=== PATIENT | female | born 1980 | race Two or more races ===

== ENCOUNTER 2024-01-03 00:30 | Inpatient (IN) | payer MEDICAID, OTHER ==
[~2024-01-03] VITALS: Ht 160 cm; Wt 90.2 kg
[2024-01-03 01:50] VITALS: PULSE 97; RESP 16; O2SAT 96
[2024-01-03 03:10] LABS: Basophils # (auto) 0.1 10 ^3/uL (0-0.2); Basophils % (auto) 0.8 % (0.0-2.0); Eosinophils # (auto) 0.2 10 ^3/uL (0-0.8); Eosinophils % (auto) 2.8 % (0.0-7.0); Hematocrit 30.2 % (36.0-46.0); Lymphocytes % (auto) 30.8 % (10.0-50.0); Mean Corpuscular Hemoglobin 26.1 pg (28.0-32.0); Monocytes # (auto) 0.3 10 ^3/uL (0-1.3); Monocytes % (auto) 4.3 % (0.0-12.0); Neutrophils # (auto) 3.9 10 ^3/uL (1.6-8.6); Neutrophils % (auto) 61.3 % (37.0-80.0); Nucleated Red Blood Cells % 0.5 %; Platelet Count (auto) 291 10^3/uL (140-450); Red Blood Cells 3.83 10^6/uL (4.0-5.20); Red Cell Distribution Width 16.4 % (11.8-14.3); White Blood Cell 6.4 10^3/uL (4.4-10.8)
[2024-01-03 03:19] LABS: Chloride 102 mmol/L (98-107); Sodium 133 mmol/L (136-145)
[2024-01-03 03:28] LABS: Alkaline Phosphatase 128 U/L (46-116); Anion Gap 14 (5-15); BUN/Creatinine Ratio 10.4 (10.0-20.0); Calcium 8.9 mg/dL (8.7-10.4); Carbon Dioxide 17 mmol/L (20-30)
[2024-01-03 03:29] LABS: Albumin 3.5 g/dL (3.2-4.8)
[2024-01-03 03:30] LABS: Alanine Aminotransferase 21 U/L (7-40); Aspartate Aminotransferase 44 U/L (13-40); Blood Urea Nitrogen 7 mg/dL (9-23); Potassium 4.5 mmol/L (3.5-5.1)
[2024-01-03 03:31] LABS: Glucose 448 mg/dL (74-106)
[2024-01-03 03:32] LABS: Bilirubin, Total 0.2 mg/dL (0.2-1.0); Total Protein 6.5 g/dL (5.7-8.2)
[2024-01-03] MEDS: SODIUM CHLORIDE 0.9% 1,000 ML IV ONE (03:54)
[2024-01-03] MEDS ORDERED: HYDROcodone-ACET 5/325MG TAB PO PRN (04:00)
[2024-01-03] MEDS ORDERED: DEXTROSE (50%) 50ML SYRG IV PRN (04:00)
[2024-01-03] MEDS ORDERED: NITROGLYCERIN 0.4 MG SL TAB SL PRN (04:00)
[2024-01-03] MEDS ORDERED: DOCUSATE SOD 100 MG CAP PO PRN (04:00)
[2024-01-03] MEDS: InsuLIN REG 1unit/0.01ml Soln (100units/ml) SC SCH (04:00)
[2024-01-03] MEDS: InsuLIN REG 1unit/0.01ml Soln (100units/ml) IV ONE (04:03)
[2024-01-03] MEDS: ONDANSETRON HCL 4 MG/2 ML VIAL IV ONE (04:03)
[2024-01-03] MEDS: ACCU-CHEK COMFORT CURVE STRIP VI SCH (04:04)
[2024-01-03 04:37] LABS: Eosinophils # (auto) 0.2 10 ^3/uL (0-0.8); Monocytes # (auto) 0.2 10 ^3/uL (0-1.3)
[2024-01-03 04:38] LABS: White Blood Cell 6.9 10^3/uL (4.4-10.8)
[2024-01-03] MEDS: SODIUM CHLORIDE 0.9% 1,000 ML IV SCH (04:39)
[2024-01-03 04:56] LABS: Albumin 3.7 g/dL (3.2-4.8); Alkaline Phosphatase 128 U/L (46-116); Anion Gap 16 (5-15); Aspartate Aminotransferase 47 U/L (13-40); Calcium 8.8 mg/dL (8.7-10.4); Carbon Dioxide 17 mmol/L (20-30); Chloride 102 mmol/L (98-107); Sodium 135 mmol/L (136-145); Total Protein 6.2 g/dL (5.7-8.2)
[2024-01-03 04:59] LABS: BUN/Creatinine Ratio 15.6 (10.0-20.0); Bilirubin, Total < 0.2 mg/dL (0.2-1.0); Blood Urea Nitrogen 10 mg/dL (9-23)
[2024-01-03 05:00] LABS: Potassium 4.2 mmol/L (3.5-5.1)
[2024-01-03 05:02] LABS: Alanine Aminotransferase 22 U/L (7-40); Glucose 401 mg/dL (74-106)
[2024-01-03 05:03] LABS: Hemoglobin 10.8 g/dL (12.2-16.2); Mean Corpuscular Hgb Conc. 32.6 g/dL (32.0-36.0); Mean Corpuscular Volume 79.7 fL (80.0-100.0); Platelet Count (auto) 400 10^3/uL (140-450); Red Blood Cells 4.15 10^6/uL (4.0-5.20); Red Cell Distribution Width 16.5 % (11.8-14.3)
[2024-01-03 05:04] LABS: Neutrophils % (auto) 62.4 % (37.0-80.0)
[2024-01-03 05:05] LABS: Basophils # (auto) 0.1 10 ^3/uL (0-0.2); Basophils % (auto) 0.8 % (0.0-2.0); Eosinophils % (auto) 2.7 % (0.0-7.0); Lymphocytes % (auto) 31.2 % (10.0-50.0); Monocytes % (auto) 2.9 % (0.0-12.0); Nucleated Red Blood Cells % 0.3 %
[2024-01-03] MEDS: LEVOTHYROXINE SODIUM 100 MCG TAB PO SCH (06:05)
[2024-01-03 07:30] VITALS: PULSE 88
[2024-01-03] MEDS: ASPirin 81 mg TAB PO SCH (08:11)
[2024-01-03 08:25] VITALS: BP 138/68; PULSE 85; RESP 18; TEMP 97.9; O2SAT 95
[2024-01-03] MEDS: ACETAMINOPHEN 325 MG TAB PO PRN (12:03)
[2024-01-03 13:00] VITALS: BP 134/74; PULSE 86; RESP 16; TEMP 98; O2SAT 95
[2024-01-03 17:15] VITALS: BP 142/76; PULSE 82; RESP 18; TEMP 98.2; O2SAT 95
[2024-01-03 18:34] LABS: Urine Bacteria None Seen /hpf (None Seen)
[2024-01-03 19:00] LABS: Urine Blood 1+ /uL (Negative); Urine Clarity Clear (Clear); Urine Color Light-Yellow (Yellow); Urine Protein, UAD 3+ (Negative); Urine Specific Gravity 1.029 (1.001-1.035); Urine Urobilinogen Normal (Negative); Urine WBC 5 /hpf (0 - 5); Urine pH 6.5 (5.0-9.0)
[2024-01-03 19:36] LABS: Amphetamine Screen, Urine Neg (NEGATIVE); Barbiturate Scree,Urine Neg (NEGATIVE); Benzodiazephine Screen, Urine Neg (NEGATIVE); Cocaine Screen, Urine Neg (NEGATIVE); Opiate Scree,Urine Neg (NEGATIVE)
[2024-01-03 19:37] LABS: Cannabinoid Screen, Urine Neg (NEGATIVE); Phencyclidine Screen, Urine Neg (NEGATIVE)
[2024-01-03 20:00] VITALS: PULSE 88
[2024-01-03] MEDS: ATORVASTATIN 20 MG TAB PO SCH (21:02)
[2024-01-04 05:00] VITALS: BP 111/65; PULSE 86; RESP 17; TEMP 98.2; O2SAT 94
[2024-01-04 05:37] LABS: Basophils # (auto) 0.1 10 ^3/uL (0-0.2); Eosinophils # (auto) 0.3 10 ^3/uL (0-0.8); Eosinophils % (auto) 4.9 % (0.0-7.0); Hemoglobin 10.7 g/dL (12.2-16.2); Lymphocytes # (auto) 2.4 10 ^3/uL (0.4-5.4); Lymphocytes % (auto) 45.6 % (10.0-50.0); Mean Corpuscular Hemoglobin 26.7 pg (28.0-32.0); Mean Corpuscular Hgb Conc. 33.5 g/dL (32.0-36.0); Mean Corpuscular Volume 79.7 fL (80.0-100.0); Monocytes # (auto) 0.4 10 ^3/uL (0-1.3); Monocytes % (auto) 6.7 % (0.0-12.0); Neutrophils # (auto) 2.2 10 ^3/uL (1.6-8.6); Neutrophils % (auto) 41.8 % (37.0-80.0); Nucleated Red Blood Cells % 0.1 %; Platelet Count (auto) 337 10^3/uL (140-450); Red Blood Cells 4.02 10^6/uL (4.0-5.20); Red Cell Distribution Width 15.8 % (11.8-14.3); White Blood Cell 5.3 10^3/uL (4.4-10.8)
[2024-01-04 05:53] LABS: Alanine Aminotransferase 20 U/L (7-40); Albumin 3.1 g/dL (3.2-4.8); Alkaline Phosphatase 79 U/L (46-116); Anion Gap 9 (5-15); Calcium 8.7 mg/dL (8.7-10.4); Carbon Dioxide 24 mmol/L (20-30); Chloride 104 mmol/L (98-107); Glucose 191 mg/dL (74-106); Potassium 3.5 mmol/L (3.5-5.1); Sodium 137 mmol/L (136-145)
[2024-01-04 05:54] LABS: Bilirubin, Total 0.2 mg/dL (0.2-1.0); Total Protein 5.5 g/dL (5.7-8.2)
[2024-01-04 05:59] LABS: Aspartate Aminotransferase 31 U/L (13-40)
[2024-01-04 06:10] LABS: BUN/Creatinine Ratio 10.9 (10.0-20.0); Blood Urea Nitrogen < 5 mg/dL (9-23)
[2024-01-04 07:30] VITALS: PULSE 92
[2024-01-04 08:43] VITALS: BP 121/78; PULSE 84; RESP 16; TEMP 98; O2SAT 97
[2024-01-04] MEDS: FUROSEMIDE 40 MG/4 ML VIAL IV SCH (12:04)
[2024-01-04 13:38] VITALS: BP 126/77; PULSE 85; RESP 16; TEMP 98.2; O2SAT 95
[2024-01-04] MEDS: MORPHINE SULFATE INJ 2 MG/ml SYRG IV PRN (16:22)
[2024-01-04 20:00] VITALS: PULSE 79; PULSE 91; RESP 18; O2SAT 98
[2024-01-04 21:00] VITALS: BP 121/77; PULSE 79; RESP 18; TEMP 97.8; O2SAT 98
[2024-01-05] VITALS (8 sets, daily range): BP systolic 114–139; BP diastolic 63–93; PULSE 74–95; RESP 16–20; TEMP 97.7–98.7; O2SAT 94–99
[2024-01-05] MEDS: ONDANSETRON HCL 4 MG/2 ML VIAL IV PRN (16:48)
[2024-01-05] MEDS ORDERED: DULO1CAP6 PO (20:08)
[2024-01-05] MEDS: DULoxetine HCL 30 MG CAP PO SCH (21:15)
[2024-01-06] VITALS (7 sets, daily range): BP systolic 98–125; BP diastolic 48–77; PULSE 63–89; RESP 16–20; TEMP 97.9–98.7; O2SAT 93–98
[2024-01-06] MEDS ORDERED: FURO1TAB31 PO (10:01)
[2024-01-06] MEDS ORDERED: POTA-180 PO (10:01)
[2024-01-06 11:51] LABS: Alanine Aminotransferase 18 U/L (7-40); Albumin 3.5 g/dL (3.2-4.8); Alkaline Phosphatase 98 U/L (46-116); Anion Gap 7 (5-15); Aspartate Aminotransferase 21 U/L (13-40); BUN/Creatinine Ratio 11.8 (10.0-20.0); Blood Urea Nitrogen 8 mg/dL (9-23); Calcium 8.8 mg/dL (8.7-10.4); Carbon Dioxide 28 mmol/L (20-30); Chloride 97 mmol/L (98-107); Glucose 372 mg/dL (74-106); Magnesium 1.5 mg/dL (1.6-2.6); Potassium 3.6 mmol/L (3.5-5.1)
[2024-01-06 11:52] LABS: Bilirubin, Total 0.4 mg/dL (0.2-1.0); Total Protein 6.1 g/dL (5.7-8.2)
[2024-01-06 11:53] LABS: Sodium 132 mmol/L (136-145)
== END 2024-01-06 13:35 | disposition home or self-care (01) | DRG 203 ==
LOC: ER 00:30 → TELE 03:58 → TELE-CENTR 05:41
PROVIDERS: ADMIT Nurse Practitioner Family; ATTEND Family Medicine
DX: M94.0 Chondrocostal junction syndrome [Tietze] (principal); E03.9 Hypothyroidism, unspecified; E11.65 Type 2 diabetes mellitus with hyperglycemia; E66.9 Obesity, unspecified; K21.9 Gastro-esophageal reflux disease without esophagitis; E78.5 Hyperlipidemia, unspecified; M06.9 Rheumatoid arthritis, unspecified; F41.9 Anxiety disorder, unspecified; Z91.013 Allergy to seafood; Z90.49 Acquired absence of other specified parts of digestive tract; Z82.49 Family history of ischemic heart disease and other diseases of the circulatory system; Z83.3 Family history of diabetes mellitus; Z79.631 Long term (current) use of antimetabolite agent; Z68.37 Body mass index [BMI] 37.0-37.9, adult
CPT/HCPCS: 36415; 71045; 80053; 80307; 81001; 82962; 83036; 83735; 83880; 84443; 84484; 85025; 93005; 93306; G0378; J1815; J2405